=== PATIENT | female | born 1945 | race Caucasian/White ===

== ENCOUNTER 2019-03-09 06:03 | Inpatient (IN) | payer MEDICARE, OTHER ==
[2019-02-26 09:20] LABS: ABSOLUTE EOSINOPHILS 0.1 thou/uL (0.0-0.7); ABSOLUTE LYMPHOCYTES 1.2 thou/uL (0.8-5.3); ABSOLUTE MONOCYTES 0.4 thou/uL (0.0-1.2); BASOPHILS 0.5 %; EOSINOPHILS 1.9 %; HEMATOCRIT 41.8 % (37.0-47.0); HEMOGLOBIN 14.3 gm/dL (12.0-15.0); MCH 32.1 pg (26.0-34.0); MCHC 34.2 g/dL (28.0-37.0); MONOCYTES 8.1 %; MPV 8.4 fl. (7.2-11.1); NUCLEATED RBCS 0 /100WBC; PLATELET COUNT* 182 thou/uL (150-400); POLYS 64.5 %; RBC 4.45 mil/uL (4.20-5.00); RDW-CV 13.4 % (10.5-14.5); WBC 4.7 thou/uL (4.0-11.0)
[2019-02-26 09:25] LABS: CALCIUM 8.8 mg/dL (8.5-10.1); CREATININE 0.7 mg/dL (0.6-1.3); POTASSIUM 3.7 mmol/L (3.5-5.1)
[2019-02-26 09:28] LABS: APTT 26.1 Seconds (25.0-31.3); PROTIME 10.5 Seconds (9.20-11.50)
[2019-02-26 09:29] LABS: ALBUMIN 3.6 g/dL (3.4-5.0); TOTAL BILIRUBIN 0.3 mg/dL (<0.1-1.0); TOTAL PROTEIN 6.5 g/dL (6.4-8.2)
--- NOTE | 2019-02-26 10:56 | EKG ---
[place] [address] ELECTROCARDIOGRAM REPORT Name: MILLI HAWKINS Room: [facility]#: [id number] Admission: Attend Phys: Yosef Li DO Discharge: Date of : 49 Report #: [id number] THIS REPORT FOR: //name// [facility] Test Date: 2019-02-26 Test Time: 09:34:17 Pat Name: MILLI HAWKINS Department: Room: Gender: F [employer] Tool [employer]ter: : 1945 Requested By: Yosef Li Order Number: [id number] Reading MD: Dewey Yao Measurements Intervals [place] Rate: 53 P: 41 CT: 145 QRS: 33 QRSD: 90 T: 31 QT: 421 QTc: 396 Interpretive Statements Sinus rhythm No previous ECG available for comparison Electronically Signed On 02-26-2019 10:56:16 CDT by Dewey Yao [email or web address] <ELECTRONICALLY SIGNED> By: Dewey Yao MD, [facility] 02/26/19 1056 0934 0934 Dewey Yao MD, FACC /EPI
[2019-02-26 11:07] LABS: ESR (SEDRATE) 5 mm/hr (0-30)
[~2019-03-09] VITALS: Ht 160 cm; Wt 68.0 kg
[~2019-03-09 06:03] MED LIST: ASPIR 8181 MG PO; LEXAPRO 10 MG T10 M2 PO; VITAMIN D1000 UNI1 PO; [UNRECOGNIZED DRUG - OTHER] PO
[2019-03-09 06:28] VITALS: BP 125/63
[2019-03-09 11:36] VITALS: BP 118/63
[2019-03-09 16:30] VITALS: BP 106/69
[2019-03-09 20:00] VITALS: BP 128/56
[2019-03-10] VITALS: BP 104/46
[2019-03-10 04:00] VITALS: BP 134/56
[2019-03-10 04:33] LABS: HEMATOCRIT 37.1 % (37.0-47.0); HEMOGLOBIN 12.7 gm/dL (12.0-15.0)
--- NOTE | 2019-03-10 05:26 | NUR ---
PT SLEPT OFF AND ON OVERNIGHT. RECEIVING PO OXY IR FOR CO L KNEE PAIN WITH GOOD RESULT. USING CPM AT HS AND TOLERATED WELL. POLAR PACK IN PLACE TO L KNEE. SCD FEET SLEEVES ON BLE. LFA IVF INFUSING PER PUMP, ABX GIVEN SCHEDULED. O2 2L OVERNIGHT,SATS HIGH 90'S, CAPNO ON AND OPERATING OVERNIGHT WITHOUT ALARMING. UP WITH ASSIST TO BSC TO VOID OVERNIGHT. AM LABS DRAWN. AOX4, PLEASANT, ABLE TO USE CALL LITE AND MAKE NEEDS KNOWN. TOLERATING REGULAR DIET WITHOUT N/V.
[2019-03-10 07:40] VITALS: BP 102/45
--- NOTE | 2019-03-10 13:00 | NUR ---
MET WITH PT TO DISCUSS HOME SITUATION/DC PLANNING. PT LIVES WITH S/O AND IS NORMALLY INDEPENDENT AND ACTIVE. USES NO EQUIPMENT BUT HAS WALKER FROM PREVIOUS SURGERY. PT PLANS TO RETURN HOME AT DC WITH S/O AND HAVE HH. DISCUSSED OPTIONS, SHE HAD NO PREFERENCE OTHER THAN ONE THAT WORKS WITH . CHOSE [facility]. CALLED AND FAXED INITIAL REFERRAL TO THEM. CALLED IN ELIQUIS SCRIPT TO [facility], PT HAS NO DRUG COVERAGE SO WOULD BE $237. DISCUSSED WITH PT, SHE CONFIRMED THIS AND STATED COULDN'T AFFORD. WILL DISCUSS WITH AND UPDATED NURSE. CM TO FOLLOW
[2019-03-10 16:05] VITALS: BP 102/45
--- NOTE | 2019-03-10 18:13 | NUR ---
ASSUMED CARE OF PATIENT AT APPROX 0730. ALERT AND ORIENTED X4. ASSESSMENT COMPLETED AND CHARTED. VSS ON ROOM AIR. PATIENT COMPLAINING OF ALOT OF PAIN, COMING TO THE DESK ASKING WHEN HER PAIN MEDS WERE DUE AND KEEPING TRACK OF TIMES FOR HER. PATIENT CALLED OUT AT 1630 FOR PAIN MEDICATION AND STATED "MY NURSE HAS BEEN LATE WITH MY PAIN MEDICATION ALL DAY LONG AND IM. JUST TIRED OF IT." I PRINTED OFF HER MAR TO SHOW HER THAT SHE HAD BEEN GIVEN PAIN MEDICATION EVERY 3 HOURS AND DILAUDID WAS GIVEN AT APPROX 0830. HER 1630 PAIN MEDICATION WAS LATE, I APOLOGIZED AND TOLD HER THE NEXT TIME SHE COULD HAVE PAIN MEDICATION. PATIENT UP AND WORKED WITH THERAPIES TODAY AND PROGRESSED TOWARD GOALS. PATIENT UP WITH WALKER AND GAIT BELT TO BATHROOM. FALL PRECAUTIONS IN PLACE. HOURLY ROUNDS COMPLETED. HOWIE LIGHT WITHIN REACH. WILL CONTINUE TO MONITOR.
[2019-03-10 20:00] VITALS: BP 128/59
[2019-03-11 04:00] VITALS: BP 135/54
--- NOTE | 2019-03-11 04:36 | NUR ---
PATIENT HAS REMAINED ALERT AND ORIENTED X 4 THROUGHOUT THE NIGHT AND RESTING QUIETLY ON HOURLY ROUNDS. AT HS TOLERATED CPM X 90 MINUTES AT 0-60 DEGREES. MEDICATED FOR PAIN Q3-4 HOURS. PATIENT IS STILL RATING HER PAIN WHEN ASSESSED PRIOR TO MEDS AT 8/10 BUT, ALSO STATES SHE SLEPT WELL AND THAT THE PAIN WAS BETTER THIS AM. VITAL SIGNS STABLE. DID RE-APPLY O2 AT HS FOR SATS LESS THAN 90%. VOIDING WITHOUT PROBLEM. MILK OF MAGNESIA HS FOR BOWEL PROGRAM. NO NAUSEA. DRESSING LEFT KNEE CLEAN AND DRY WITH ICE PACKS. BED ALARM ON FOR SAFETY. UP WITH WALKER AND GAIT BELT MIN ASSIST. CONTINUE TO MONITOR.
[2019-03-11 05:20] LABS: HEMATOCRIT 36.7 % (37.0-47.0); HEMOGLOBIN 12.4 gm/dL (12.0-15.0)
[2019-03-11] MEDS ORDERED: CYCLOBENZAPRINE10 MG PO (08:15)
[2019-03-11] MEDS ORDERED: ELIQUIS5 MG PO (08:15)
[2019-03-11] MEDS ORDERED: COLACE 100 MG100 MG PO (08:15)
[2019-03-11] MEDS ORDERED: OXYCODONE HCL 55 MG PO (08:15)
[2019-03-11 08:30] VITALS: BP 107/53
--- NOTE | 2019-03-11 13:46 | NUR ---
PT.TO DISCHARGE TODAY. SHE DOES NOT HAVE ANY PRESCRIPTION DRUG COVERAGE. CM HAD COUPON FOR ELIQUIS FREE TRIAL OFFER. CALLED IN COUPON TO [facility] (PT.S PHARMACY) AND IT DID GO THROUGH. RN TO GIVE PT.COUPON. IVANIA TO SEE PT. FAXED DISCHARGE ORDERS TO [facility]. THEY WILL CALL PT.TO SET UP APPT.
[2019-03-11] MEDS ORDERED: TRAMADOL 50 MG50 MG PO (15:33)
--- NOTE | 2019-03-11 17:29 | NUR ---
ASSUMED CARE OF PATIENT AT APPROX 0730. ALERT AND ORIENTED X4. ASSESSMENT COMPLETED AND CHARTED. VSS ON ROOM AIR. PAIN MANAGED WITH ORAL MEDICATIONS. NO COMPLAINT OF NAUSEA OR SOA. PATIENT UP WITH GAIT BELT AND WALKER, USING THE BATHROOM. WORKED WELL WITH THERAPIES AND PROGRESSED TOWARD GOALS. PATIENT DISCHARGED AT 1600 WITH ALL PERSONAL BELONGINGS, PRESCRIPTIONS AND DISCHARGE INFORMATION. CPM SENT WITH PATIENT AND INSTRUCTED ON USE AND WHO TO CONTACT FOR PICKUP.
--- NOTE | 2019-03-13 16:22 | OP ---
[address] [address] OPERATIVE REPORT Name: MILLI HAWKINS Room: [address] [place] .R.#: [id number] Admission: 03/09/19 Attend Phys: Mouna Rizo Discharge: 03/11/19 Date of : 49 Report #: [id number] THIS REPORT FOR: //name// CC: Sigifredo Larson DICTATED BY: RESIDENT Palafox DO DATE OF SERVICE: 03/09/2019 PREOPERATIVE DIAGNOSIS: Advanced degenerative joint disease, left knee. POSTOPERATIVE DIAGNOSIS: Advanced degenerative joint disease, left knee. PROCEDURE: Left total knee arthroplasty utilizing Priscilla total knee arthroplasty system with a size 8 narrow cruciate retained femur, size E tibial baseplate, 14 mm medial congruent spacer and 29 mm 3 peg patella with 2 bags of Biomet bone cement. SURGEON: Yosef Li DO TERMINAL CARMAN: Deuce Jimenez DO. TOURNIQUET TIME: Approximately 1 hour. ANTIBIOTICS: Ancef 2 grams IV preoperatively. COMPLICATIONS: None. DRAINS: None. SPECIMEN REMOVED: None. ESTIMATED BLOOD LOSS: 100 mL. CONDITION OF PATIENT: Stable to PACU. INDICATIONS FOR PROCEDURE: The patient is a very pleasant 73-year-old female seen in my clinic regarding bilateral knee pain she had for quite some time. She unfortunately failed extensive conservative treatment. Pain is interfering with her quality of life and activities of daily living. Based on her x-rays and physical examination, I have discussed potential benefit of left total knee arthroplasty. I discussed procedure, risks, benefits, complications and indications in detail with her. Risks discussed include but not limited to infection, neurovascular injury, continued or worsening pain, arthrofibrosis, [address] [address] OPERATIVE REPORT Name: MILLI HAWKINS Room: [address] [place] ..#: [id number] Admission: 03/09/19 Attend Phys: Mouna Rizo Discharge: 03/11/19 Date of : 49 Report #: [id number] hardware failure, fracture, need for further surgery, DVT, PE, and/or anesthesia complications. She did express understanding and wished to proceed with surgery. DESCRIPTION OF PROCEDURE: After consent was obtained, the patient was taken to the operative suite and placed in supine position on operating room table. She was given benefit of general anesthesia. A well-padded tourniquet was placed on the left upper thigh. Left leg was sterilely prepped and draped in usual fashion. Preoperative timeout was obtained to confirm the correct patient, procedure and operative site. Surgery began with elevation of tourniquet to 300 mmHg. Standard anterior knee midline incision was made. Sharp dissection was taken down to the level of the capsule. A new knife was used and a medial parapatellar arthrotomy was performed. The patella was everted. She had normal appearing joint effusion. Upon surgical inspection of the knee, she had severely eburnated bone of the medial compartment with osteophytes throughout. She had moderate eburnation of the patellofemoral and lateral compartments. Hohmann retractors were placed all times to protect collateral ligaments. Femoral drill was used to open the femoral canal. T-handle and intramedullary yaima were placed measuring 5-degree valgus cut. Distal femoral cut was made to the captured block. AP sizer was placed. Femur measured a size 8. Two spray pilot holes were drilled in 3 degrees of external rotation. Size 8, 4-in-1 cutting block was then pinned in place and the anterior and posterior condylar cuts were made as well as chamfer cuts. Curved osteotome was used to remove posterior osteophytes. At this time, the proximal tibia was exposed. Proximal tibial cut was made measuring 10 mm cut off the high lateral side. The knee was taken through extension, 10 block was used to ensure adequate resection. Again, the proximal tibia was exposed, this measured size E. The size E tibial trial was pinned in place and the basing rotation off the medial third of the tibial tubercle and middle of talus. The trial femur was placed. Size 10 spacer was placed. Knee was taken through range of motion. She had full flexion and extension with stable varus and valgus testing and equal flexion and extension gaps. The patella was everted. Posterior patellar cut was made using freehand technique, this measured size 29, 3 peg holes were drilled, size 29 button was placed. Knee was taken through range of motion and the patella did track well. At this time, the trial femur and spacer were removed. Proximal tibia was opened with a drill and punch. All trial components were then removed. The knee was thoroughly irrigated with pulsatile lavage and dried with a clean lap sponge. At this time, the cement was mixed, placed on the exposed bone and final components. These were impacted in place. Excess cement was removed. A size 12 spacer was placed. Knee was taken through extension. Axial compression was applied until the cement hardened. Once the cement hardened, trial reduction was performed. The final size 14 spacer was chosen, this was placed on a clean tibial tray and locked in place. Audible click was heard[place] [address] OPERATIVE REPORT Name: MILLI HAWKINS Room: [address] [place] [facility]#: [id number] Admission: 03/09/19 Attend Phys: Mouna Rizo Discharge: 03/11/19 Date of : 49 Report #: [id number] through final range of motion. She had full flexion and extension with stable varus and valgus testing, equal flexion and extension gaps with good patellar tracking. The tourniquet was then deflated. Hemostasis was achieved with electrocautery and direct pressure. Ortho cocktail was injected. Capsular tissue was closed with #1 Vicryl in [id number] fashion. Subcutaneous tissue was closed with 2-0 Vicryl in interrupted fashion followed by running Monocryl stitch on the skin. This covered with Dermabond, which was allowed to dry and Mepilex silver dressing. She did tolerate the procedure well without complications. She was taken to recovery room in stable condition. All needle and sponge counts were correct x 2 at the end of the procedure. <ELECTRONICALLY SIGNED> By: Yosef Li DO 03/13/19 1622 1230 1317Davimouna Li DO /nt
== END 2019-03-11 16:00 | disposition home health service (06) | DRG 470 ==
LOC: M.SUR 06:03 → M.ORTHSURG 09:36 → M.TBA 09:36 → M.SUR 11:03 → M.ORTHSURG 11:16 → M.SUR 13:12 → M.ORTHSURG 03-11 16:00
PROVIDERS: Orthopaedic Surgery; ADMIT Internal Medicine
PROC: 0SRD0J9 Replacement of Left Knee Joint with Synthetic Substitute, Cemented, Open Approach (ICD-10-PCS; principal; 2019-03-09)
DX: M17.12 Unilateral primary osteoarthritis, left knee (principal); F32.9 Major depressive disorder, single episode, unspecified; F41.9 Anxiety disorder, unspecified; G47.30 Sleep apnea, unspecified; Z86.73 Personal history of transient ischemic attack (TIA), and cerebral infarction without residual deficits; Z88.8 Allergy status to other drugs, medicaments and biological substances; Z87.891 Personal history of nicotine dependence

== ENCOUNTER → 2020-02-16 | Outpatient (CLI) | payer MEDICARE, OTHER ==
[~2020-02-16] MED LIST changes: +COLACE 100 MG100 MG PO; +CYCLOBENZAPRINE10 MG PO; +ELIQUIS5 MG PO; +OXYCODONE HCL 55 MG PO; +TRAMADOL 50 MG50 MG PO
[2020-02-16 12:44] LABS: CREATININE 0.7 mg/dL (0.6-1.3)
== END ==
LOC: M.LAB 12:20 → M.MRI 13:30
PROVIDERS: ATTEND Orthopaedic Surgery
DX: M16.11 Unilateral primary osteoarthritis, right hip (principal); M25.851 Other specified joint disorders, right hip; Z96.642 Presence of left artificial hip joint; Z98.890 Other specified postprocedural states